=== PATIENT | male | born 2000 | race Caucasian/White ===

== ENCOUNTER 2021-08-14 22:04 | Emergency (ER) | payer OTHER ==
[~2021-08-14] VITALS: Ht 175.3 cm; Wt 67.3 kg
[2021-08-14 22:15] VITALS: BP 105/57
== END 2021-08-15 01:47 | disposition home or self-care (01) ==
LOC: M ED 22:04
DX: S61.411A Laceration without foreign body of right hand, initial encounter (principal); W22.8XXA Striking against or struck by other objects, initial encounter; Y92.39 Other specified sports and athletic area as the place of occurrence of the external cause; F17.210 Nicotine dependence, cigarettes, uncomplicated

== ENCOUNTER 2021-08-24 14:47 | Emergency (ER) | payer OTHER ==
[~2021-08-24] VITALS: Ht 177.8 cm; Wt 68.8 kg
[2021-08-24 14:47] VITALS: BP 130/71
== END 2021-08-24 16:51 | disposition home or self-care (01) ==
LOC: M ED 14:47
DX: Z48.02 Encounter for removal of sutures (principal)

== ENCOUNTER 2024-07-19 16:33 | Emergency (ER) | payer OTHER ==
[~2024-07-19] VITALS: Ht 175.3 cm; Wt 72.7 kg
[2024-07-19] MEDS ORDERED: ISOVUE-370 76% 100ML VIAL As Ordered ONE (17:08)
[2024-07-19 17:10] LABS: HEMATOCRIT 42.1 % (42.0-52.0); HEMOGLOBIN 14.7 g/dl (13.5-17.5); MEAN CORPUSCULAR HEMOGLOBIN 29.5 pg (27.0-33.0); MEAN CORPUSCULAR HGB CONC 34.9 g/dl (32.0-36.5); MEAN CORPUSCULAR VOLUME 84.5 fl (80.0-96.0); PLATELET COUNT, AUTOMATED 316 10^3/uL (150-450); RED BLOOD COUNT 4.98 10^6/uL (4.30-6.10); WHITE BLOOD COUNT 11.9 10^3/uL (4.0-10.0)
[2024-07-19] MEDS ORDERED: IBUP-1022 PO (18:26)
[2024-07-19] MEDS: KETOROLAC 30 MG/ML 1ML VIAL IV ONE (18:36)
[2024-07-19 18:43] VITALS: BP 144/62; TEMP 98.5; O2SAT 98
== END 2024-07-19 18:46 | disposition home or self-care (01) ==
LOC: EDBD 16:33 → M ED 16:33
DX: S47.2XXA Crushing injury of left shoulder and upper arm, initial encounter (principal); Y92.9 Unspecified place or not applicable; Y93.9 Activity, unspecified; Y99.0 Civilian activity done for income or pay; Z79.1 Long term (current) use of non-steroidal anti-inflammatories (NSAID)
CPT/HCPCS: 71260; 73030; 80047; 85027; 86850; 86900; 86901; 93041; 96374; 99284; J1885; Q9967